=== PATIENT | female | born 1970 | race Caucasian/White ===

== ENCOUNTER → 2016-10-06 | Outpatient (REF) | LOC: WSOH 13:11 | DX: Z02.89 Encounter for other administrative examinations (principal) ==

== ENCOUNTER → 2017-04-12 | Outpatient (CLI) | payer BC | LOC: MC.RAD 10:20 | DX: Z12.31 Encounter for screening mammogram for malignant neoplasm of breast (principal) ==

== ENCOUNTER → 2018-05-18 | Outpatient (CLI) | payer BC | LOC: MC.RAD 13:33 | DX: Z12.31 Encounter for screening mammogram for malignant neoplasm of breast (principal) ==

== ENCOUNTER → 2019-06-06 | Outpatient (CLI) | payer BC | LOC: MC.RAD 08:23 | DX: Z12.31 Encounter for screening mammogram for malignant neoplasm of breast (principal) ==

== ENCOUNTER 2019-08-16 14:30 | Outpatient (RCR) | payer BC | END 2019-09-20 | disposition home or self-care (01) | LOC: WSPT | DX: M54.2 Cervicalgia (principal); M54.9 Dorsalgia, unspecified ==

== ENCOUNTER 2020-03-19 14:30 | Outpatient (RCR) | payer BC | END 2020-06-03 | disposition home or self-care (01) | LOC: WSPT | DX: M53.3 Sacrococcygeal disorders, not elsewhere classified (principal); M54.5 Low back pain; M25.551 Pain in right hip; M54.2 Cervicalgia ==

== ENCOUNTER → 2020-06-25 | Outpatient (CLI) | payer BC | LOC: MC.RAD 15:30 | DX: Z12.31 Encounter for screening mammogram for malignant neoplasm of breast (principal) ==

== ENCOUNTER → 2021-06-26 | Outpatient (CLI) | payer BC | LOC: MC.RAD 10:45 | DX: Z12.31 Encounter for screening mammogram for malignant neoplasm of breast (principal) ==

== ENCOUNTER → 2021-10-10 | Outpatient (CLI) | payer BC | LOC: COL.RAD 13:37 | DX: R10.11 Right upper quadrant pain (principal) ==

== ENCOUNTER 2022-01-27 13:45 | Outpatient (RCR) | payer BC | END 2022-01-28 | disposition home or self-care (01) | LOC: PT.GENESIS | DX: M72.2 Plantar fascial fibromatosis (principal) ==

== ENCOUNTER 2022-03-23 14:45 | Outpatient (RCR) | payer BC | END 2022-03-30 | disposition home or self-care (01) | LOC: PT.GENESIS | DX: M72.2 Plantar fascial fibromatosis (principal) ==